=== PATIENT | male | born 1980 | race Caucasian/White ===

== ENCOUNTER 2023-09-13 06:12 | Day surgery (SDC) | payer OTHER, SELFPAY ==
[2023-09-13] VITALS (12 sets, daily range): BP systolic 99–123; BP diastolic 61–81; BMI 35.3
[2023-09-13] MEDS: TRANSDERM-SCOP 1 PATCH TRANSDERM (11:51)
== END 2023-09-13 16:15 | disposition home or self-care (01) ==
LOC: SDS 06:12
PROVIDERS: ATTENDING PHYSICIAN Otolaryngology
DX: J34.2 Deviated nasal septum (principal); J34.3 Hypertrophy of nasal turbinates
CPT/HCPCS: 30520; 30140